=== PATIENT | male | born 1985 | race Caucasian/White ===

== ENCOUNTER 2019-12-18 16:56 | Emergency (ER) | payer BC ==
[~2019-12-18] VITALS: Ht 177.8 cm; Wt 90.7 kg
--- NOTE | 2019-12-18 17:17 | NUR ---
MANOLO OLIVEROS AT BEDSIDE FOR EVAL.
--- NOTE | 2019-12-18 17:35 | NUR ---
U/S TECH AT BEDSIDE FOR SCROTAL ULTRASOUND.
[2019-12-18 17:51] LABS: APPEARANCE,URINE Clear (CLEAR); BILIRUBIN,URINE SMALL (NEGATIVE); BLOOD, URINE Negative Ery/uL (NEGATIVE); COLOR,URINE Yellow (YELLOW); KETONES,URINE Trace (NEGATIVE); LEUKOCYTE ESTERASE ,URINE Negative (NEGATIVE); NITRITE, URINE Negative (NEGATIVE); PH,URINE 5.5 (5.0-8.0); PROTEIN,URINE Negative (NEGATIVE); UGLUCOSE Negative (NEGATIVE); UROBILINOGEN,URINE 0.2 EU/dL (0.2)
[2019-12-18 18:42] VITALS: BP 140/88
--- NOTE | 2019-12-18 18:42 | NUR ---
Patient discharged to home in stable condition. Written and verbal after care instructions given. Patient verbalizes understanding of instruction.
== END 2019-12-18 18:42 | disposition home or self-care (01) ==
LOC: ER 16:56
DX: N50.811 Right testicular pain (principal)
CPT/HCPCS: 76870-TC; 81000-TC; 87491; 87591